=== PATIENT | male | born 1960 | race African-American/Black ===

== ENCOUNTER 2018-09-03 08:44 | Day surgery (SDC) | payer OTHER ==
[~2018-09-03] VITALS: Ht 172.7 cm; Wt 81.6 kg
[2018-09-03] MEDS ORDERED: KETOROLAC 30 MG/ML VIAL ONE (10:31)
[2018-09-03] MEDS ORDERED: LIDOCAINE 2% 100 MG/5 ML UJET TP ONE (10:32)
[2018-09-03] MEDS ORDERED: KETOROLAC 60 MG/2 ML VIAL IM ONE (10:43)
== END 2018-09-03 11:35 | disposition home or self-care (01) ==
LOC: MDS 08:44 → MMU 08:45 → MDS 11:35
PROVIDERS: ATTEND Internal Medicine Gastroenterology
DX: Z12.11 Encounter for screening for malignant neoplasm of colon (principal); K57.30 Diverticulosis of large intestine without perforation or abscess without bleeding; I10 Essential (primary) hypertension; E78.5 Hyperlipidemia, unspecified; E66.3 Overweight; Z68.27 Body mass index [BMI] 27.0-27.9, adult; Z79.82 Long term (current) use of aspirin; Z79.899 Other long term (current) drug therapy; Z87.891 Personal history of nicotine dependence; Z86.73 Personal history of transient ischemic attack (TIA), and cerebral infarction without residual deficits; Z98.890 Other specified postprocedural states
CPT/HCPCS: 45378; J1885